=== PATIENT | female | born 1990 | race Two or more races ===

== ENCOUNTER 2018-08-25 04:51 | Observation (INO) | payer SELFPAY ==
[~2018-08-25] VITALS: Ht 165.1 cm; Wt 94.8 kg
[2018-08-25] MEDS ORDERED: ACETAMINOPHEN 325 MG TABLET. PO PRN (05:00)
[2018-08-25] MEDS ORDERED: MAG HYDROX/ALUMINUM HYD/SIMETH 30 ML ORAL.SUSP PO PRN (05:00)
[2018-08-25 05:10] VITALS: BP 97/52
[2018-08-25 05:23] LABS: BILIRUBIN,URINE NEGATIVE (NEG); CLARITY,URINE CLEAR; COLOR,URINE YELLOW; NITRITE,URINE POSITIVE (NEG); PH,URINE 6.5; PROTEIN,URINE NEGATIVE (NEG-TRACE)
[2018-08-25 05:30] LABS: BARBITURATES NEG (NEG); BENZODIAZEPINES NEG (NEG); CANNABINOIDS NEG (NEG); COCAINE NEG (NEG); METHADONE NEG (NEG); OPIATES NEG (NEG); PHENCYCLIDINE NEG (NEG)
[2018-08-25 05:31] LABS: RBC,URINE OCC /HPF (0-2)
[2018-08-25 05:32] LABS: BACTERIA,URINE MANY /HPF (0-FEW); SQUAMOUS EPITHELIAL CELL,UR MANY /LPF
[2018-08-25 05:37] LABS: AMPHETAMINE/METHAMPHETAMINE NEG (NEG)
[2018-08-25] MEDS: IV RINGERS,LACTATED 1000ML 1,000 ML IV PRN ×2 (06:38→07:50)
[2018-08-25 06:40] LABS: BASO % 0 % (0-3); EOS # 0.1 x10^3/uL (0.0-0.7); EOS % 1 % (0-3); HEMATOCRIT 37.3 % (36.0-47.0); HEMOGLOBIN 12.3 g/dL (12.0-15.5); LYMPH # 1.9 x10^3/uL (1.0-4.8); LYMPH % 16 % (24-48); MEAN CORPUSCULAR HEMOGLOBIN 30 pg (25-35); MEAN CORPUSCULAR HGB CONC 33 g/dL (31-37); MEAN CORPUSCULAR VOLUME 91 fL (79-100); MONO # 0.6 x10^3/uL (0.0-1.1); MONO % 5 % (0-9); NEUT # 9.1 x10^3uL (1.8-7.7); NEUT % 78 % (31-73); PLATELET COUNT 231 x10^3/uL (140-400); RED CELL DISTRIBUTION WIDTH 12.3 % (11.5-14.5); WHITE BLOOD COUNT 11.7 x10^3/uL (4.0-11.0)
--- NOTE | 2018-08-25 06:46 | RAD ---
Clinical History: Right upper quadrant pain and Technique: Sonographic examination of the right upper quadrant of the abdomen was performed and multiple static images were obtained. Comparison: none Findings: The majority of the liver is visualized and appears homogeneous. The liver measures 19 cm in length. The common bile duct appears normal and measures 3 mm in diameter. The gallbladder is mildly distended and has mild tenderness and small stones. There is no wall thickening or surrounding fluid. The pancreas is not well visualized due to overlying bowel gas. The right kidney appears normal and measures 12 cm in length. Impression: 1. Cholelithiasis and distention of the gallbladder. Mild tenderness over the gallbladder but no wall thickening or surrounding fluid to suggest acute gallstones. Clinical correlation is suggested. 2. Mild hepatomegaly. Electronically signed by: Joshua Peacock III, MD (08/25/2018 6:43 AM) [facility]
--- NOTE | 2018-08-25 06:50 | RAD ---
OB ultrasound greater than 14 weeks HISTORY: Right upper quadrant pain and Sonographic examination appearance was performed and multiple static images were obtained. There is a single live intrauterine the heartbeat is confirmed at 123 beats for minute. Visualization of structures is limited at this advanced gestational age. There is a 4.8 cm fibroid seen in the uterus. The LMP of 03/23/2018 corresponds with a 22 week 1 day gestational age and estimated date confinement of December 28, 2018. This may size by ultrasound is 22 weeks 2 days Estimated weight is 1 lb. 2 oz. Estimated weight percentile is 43 percent. Measurements are as follows: BPD 5.3 cm 22 weeks 0 days Head circumference 20 cm 22 weeks 2 days Abdominal circumference 17 cm 22 weeks 2 days Femur length 3.9 cm 20 weeks 5 days Amniotic fluid index is 7.5 cm. There is a breech position. There is an anterior wall placenta. IMPRESSION: 1. Single live intrauterine at 22 weeks 1 day gestational age by LMP has appropriate size by ultrasound. 2. Uterine fibroid likely incidental. 3. No abnormality identified. A short-term follow-up ultrasound could be performed if clinically indicated. Electronically signed by: Joshua Peacock III, MD (08/25/2018 6:47 AM) [facility]
[2018-08-25 07:07] LABS: CREATININE 0.5 mg/dL (0.6-1.0); GFR 145.9; POTASSIUM 3.4 mmol/L (3.5-5.1)
[2018-08-25 07:12] LABS: ALBUMIN 2.6 g/dL (3.4-5.0); ALBUMIN/GLOBULIN RATIO 0.6 (1.0-1.7); TOTAL BILIRUBIN 0.4 mg/dL (0.2-1.0); TOTAL PROTEIN 6.9 g/dL (6.4-8.2)
[2018-08-25] MEDS ORDERED: cefTRIAXone IV Push 1 GM VIAL. IVP ONE (08:45)
--- NOTE | 2018-08-25 10:20 | PDOC2 ---
CONSULT Date of Consult Date of Consult DATE: 08/25/18 TIME: 10:16 Reason for Consult Reason for Consult: cholelithiasis Referring Physician Referring Physician: Dr Peterson Identification/Chief Complaint Chief Complaint abdominal pain Source Source: Chart review, Patient History of Present Illness Reason for Visit: 22 weeks , developed acute epigastric pain with associated nausea last night. She had pizza and hot wings for supper. Currently no further pain Past Medical History Cardiovascular: HTN Past Surgical History Past Surgical History: No pertinent history Family History Family History: Other (noncontributory to current illness ) Social History No ALCOHOL: none Current Medications Current Medications Current Medications Ringer's Solution 1,000 ml @ 125 mls/hr Q8H PRN IV hydration Last administered on 08/25/18at 07:50; Start 08/25/18 at 05:00 Acetaminophen (Tylenol) 650 mg PRN Q6HRS PRN PO mild PAIN, TEMP > 100.5'F; Start 08/25/18 at 05:00 Al Hydroxide/Mg Hydroxide (Mylanta Plus Xs) 15 ml PRN Q4HRS PRN PO HEARTBURN / GAS; Start 08/25/18 at 05:00 Ceftriaxone Sodium (Rocephin) 1 gm 1X ONCE IVP Last administered on 08/25/18at 09:19; Start 08/25/18 at 08:45; Stop 08/25/18 at 08:56; Status DC Allergies Allergies: Coded Allergies: No Known Drug Allergies (Unverified , 08/25/18) ROS General: No: Chills, Other (fevers) PSYCHOLOGICAL ROS: No: Anxiety, Depression Eyes: No Blurry vision, No Double vision HEENT: No: Heacaches, Sore Throat Hematological and Lymphatic: No: Bleeding Problems, Blood Clots Respiratory: No: Cough, Shortness of breath Gastrointestinal: Yes Other (see hpi) Genitourinary: No Dysuria, No Hematuria Musculoskeletal: No Joint Pain, No Muscle Pain Neurological: No Confusion, No Numbness/Tingling Skin: No Pruritus, No Rash Physical Exam General: Alert, Oriented X3, Cooperative, No acute distress HEENT: PERRLA, Mucous membr. moist/pink Lungs: Clear to auscultation, Normal air movement Heart: Regular rate, Normal S1, Normal S2, No murmurs Abdomen: Soft, Other (NTTP, abdomen ) Extremities: No clubbing, No cyanosis Skin: No rashes, No breakdown Neuro: Normal gait, Normal speech Psych/Mental Status: Mental status NL, Mood NL MUSCULOSKELETAL: No deformity, No swelling Vitals VITALS Vital Signs Date Time Temp Pulse Resp B/P (MAP) Pulse Ox O2 Delivery O2 Flow Rate FiO2 08/25/18 05:10 97.2 49 16 97/52 (67) 97.2 Labs Labs Laboratory Tests Test 08/25/18 05:15 08/25/18 06:25 Urine Collection Type Unknown Urine Color Yellow Urine Clarity Clear Urine pH 6.5 Urine Specific [place] 1.025 Urine Protein Negative mg/dL (NEG-TRACE) Urine Glucose (UA) Negative mg/dL (NEG) Urine Ketones (Stick) Negative mg/dL (NEG) Urine Blood Negative (NEG) Urine Nitrite Positive (NEG) Urine Bilirubin Negative (NEG) Urine Urobilinogen Dipstick 1.0 mg/dL (0.2 mg/dL) Urine Leukocyte Esterase Moderate (NEG) Urine RBC Occ /HPF (0-2) Urine WBC 11-20 /HPF (0-4) Urine Squamous Epithelial Cells Many /LPF Urine Bacteria Many /HPF (0-FEW) Urine Mucus Mod /LPF Urine Opiates Screen Neg (NEG) Urine Methadone Screen Neg (NEG) Urine Barbiturates Neg (NEG) Urine Phencyclidine Screen Neg (NEG) Urine Amphetamine/Methamphetamine Neg (NEG) Urine Benzodiazepines Screen Neg (NEG) Urine Cocaine Screen Neg (NEG) Urine Cannabinoids Screen Neg (NEG) Urine Ethyl Alcohol Neg (NEG) White Blood Count 11.7 x10^3/uL (4.0-11.0) Red Blood Count 4.10 x10^6/uL (3.50-5.40) Hemoglobin 12.3 g/dL (12.0-15.5) Hematocrit 37.3 % (36.0-47.0) Mean Corpuscular Volume 91 fL (79-100) Mean Corpuscular Hemoglobin 30 pg (25-35) Mean Corpuscular Hemoglobin Concent 33 g/dL (31-37) Red Cell Distribution Width 12.3 % (11.5-14.5) Platelet Count 231 x10^3/uL (140-400) Neutrophils (%) (Auto) 78 % (31-73) Lymphocytes (%) (Auto) 16 % (24-48) Monocytes (%) (Auto) 5 % (0-9) Eosinophils (%) (Auto) 1 % (0-3) Basophils (%) (Auto) 0 % (0-3) Neutrophils # (Auto) 9.1 x10^3uL (1.8-7.7) Lymphocytes # (Auto) 1.9 x10^3/uL (1.0-4.8) Monocytes # (Auto) 0.6 x10^3/uL (0.0-1.1) Eosinophils # (Auto) 0.1 x10^3/uL (0.0-0.7) Basophils # (Auto) 0.0 x10^3/uL (0.0-0.2) Sodium Level 136 mmol/L (136-145) Potassium Level 3.4 mmol/L (3.5-5.1) Chloride Level 103 mmol/L (98-107) Carbon Dioxide Level 25 mmol/L (21-32) Anion Gap 8 (6-14) Blood Urea Nitrogen 7 mg/dL (7-20) Creatinine 0.5 mg/dL (0.6-1.0) Estimated GFR (Cockcroft-Gault) 145.9 BUN/Creatinine Ratio 14 (6-20) Glucose Level 124 mg/dL (70-99) Calcium Level 9.0 mg/dL (8.5-10.1) Total Bilirubin 0.4 mg/dL (0.2-1.0) Aspartate Amino Transf (AST/SGOT) 18 U/L (15-37) Alanine Aminotransferase (ALT/SGPT) 14 U/L (14-59) Alkaline Phosphatase 63 U/L (46-116) Total Protein 6.9 g/dL (6.4-8.2) Albumin 2.6 g/dL (3.4-5.0) Albumin/Globulin Ratio 0.6 (1.0-1.7) Amylase Level 68 U/L (25-115) Lipase 129 U/L (73-393) Laboratory Tests Test 08/25/18 05:15 08/25/18 06:25 Urine Collection Type Unknown Urine Color Yellow Urine Clarity Clear Urine pH 6.5 Urine Specific [place] 1.025 Urine Protein Negative mg/dL (NEG-TRACE) Urine Glucose (UA) Negative mg/dL (NEG) Urine Ketones (Stick) Negative mg/dL (NEG) Urine Blood Negative (NEG) Urine Nitrite Positive (NEG) Urine Bilirubin Negative (NEG) Urine Urobilinogen Dipstick 1.0 mg/dL (0.2 mg/dL) Urine Leukocyte Esterase Moderate (NEG) Urine RBC Occ /HPF (0-2) Urine WBC 11-20 /HPF (0-4) Urine Squamous Epithelial Cells Many /LPF Urine Bacteria Many /HPF (0-FEW) Urine Mucus Mod /LPF Urine Opiates Screen Neg (NEG) Urine Methadone Screen Neg (NEG) Urine Barbiturates Neg (NEG) Urine Phencyclidine Screen Neg (NEG) Urine Amphetamine/Methamphetamine Neg (NEG) Urine Benzodiazepines Screen Neg (NEG) Urine Cocaine Screen Neg (NEG) Urine Cannabinoids Screen Neg (NEG) Urine Ethyl Alcohol Neg (NEG) White Blood Count 11.7 x10^3/uL (4.0-11.0) Red Blood Count 4.10 x10^6/uL (3.50-5.40) Hemoglobin 12.3 g/dL (12.0-15.5) Hematocrit 37.3 % (36.0-47.0) Mean Corpuscular Volume 91 fL (79-100) Mean Corpuscular Hemoglobin 30 pg (25-35) Mean Corpuscular Hemoglobin Concent 33 g/dL (31-37) Red Cell Distribution Width 12.3 % (11.5-14.5) Platelet Count 231 x10^3/uL (140-400) Neutrophils (%) (Auto) 78 % (31-73) Lymphocytes (%) (Auto) 16 % (24-48) Monocytes (%) (Auto) 5 % (0-9) Eosinophils (%) (Auto) 1 % (0-3) Basophils (%) (Auto) 0 % (0-3) Neutrophils # (Auto) 9.1 x10^3uL (1.8-7.7) Lymphocytes # (Auto) 1.9 x10^3/uL (1.0-4.8) Monocytes # (Auto) 0.6 x10^3/uL (0.0-1.1) Eosinophils # (Auto) 0.1 x10^3/uL (0.0-0.7) Basophils # (Auto) 0.0 x10^3/uL (0.0-0.2) Sodium Level 136 mmol/L (136-145) Potassium Level 3.4 mmol/L (3.5-5.1) Chloride Level 103 mmol/L (98-107) Carbon Dioxide Level 25 mmol/L (21-32) Anion Gap 8 (6-14) Blood Urea Nitrogen 7 mg/dL (7-20) Creatinine 0.5 mg/dL (0.6-1.0) Estimated GFR (Cockcroft-Gault) 145.9 BUN/Creatinine Ratio 14 (6-20) Glucose Level 124 mg/dL (70-99) Calcium Level 9.0 mg/dL (8.5-10.1) Total Bilirubin 0.4 mg/dL (0.2-1.0) Aspartate Amino Transf (AST/SGOT) 18 U/L (15-37) Alanine Aminotransferase (ALT/SGPT) 14 U/L (14-59) Alkaline Phosphatase 63 U/L (46-116) Total Protein 6.9 g/dL (6.4-8.2) Albumin 2.6 g/dL (3.4-5.0) Albumin/Globulin Ratio 0.6 (1.0-1.7) Amylase Level 68 U/L (25-115) Lipase 129 U/L (73-393) Assessment/Plan Assessment/Plan symptomatic cholelithiasis, no cholecystitis no pain now would rec low fat heart healthy diet attempt to avoid cholecystectomy until after DEYA CAMPO APRN Aug 25, 2018 10:19
== END 2018-08-25 11:25 | disposition home or self-care (01) ==
LOC: 3 SO LND 04:51
PROVIDERS: ADMIT Specialist; ATTEND Specialist
DX: O99.612 Diseases of the digestive system complicating pregnancy, second trimester (principal); K80.20 Calculus of gallbladder without cholecystitis without obstruction; O26.892 Other specified pregnancy related conditions, second trimester; R10.13 Epigastric pain; R11.0 Nausea; Z3A.22 22 weeks gestation of pregnancy
CPT/HCPCS: 36415; 76705; 76815; 80053; 80307; 81001; 82150; 83690; 85025; 87086; 87186; 96374; G0378; G0379; J0696; J7120

== ENCOUNTER 2018-10-15 23:25 | Observation (INO) | payer MEDICAID, SELFPAY ==
[2018-10-15] MEDS ORDERED: IV RINGERS,LACTATED 1000ML 1,000 ML IV SCH (23:45)
[2018-10-15 23:51] LABS: BILIRUBIN,URINE NEGATIVE (NEG); CLARITY,URINE CLOUDY; COLOR,URINE YELLOW; NITRITE,URINE NEGATIVE (NEG); PROTEIN,URINE NEGATIVE (NEG-TRACE); UROBILINOGEN,URINE 0.2 mg/dL (0.2 mg/dL)
[2018-10-15 23:59] LABS: BARBITURATES NEG (NEG); BENZODIAZEPINES NEG (NEG); CANNABINOIDS NEG (NEG); COCAINE NEG (NEG); METHADONE NEG (NEG); OPIATES NEG (NEG); PHENCYCLIDINE NEG (NEG)
[2018-10-16 00:02] LABS: AMPHETAMINE/METHAMPHETAMINE NEG (NEG)
[2018-10-16 00:17] LABS: SQUAMOUS EPITHELIAL CELL,UR MOD /LPF
[2018-10-16 00:18] LABS: BACTERIA,URINE 0 /HPF (0-FEW); RBC,URINE 0 /HPF (0-2); SPERM,URINE PRESENT /HPF
== END 2018-10-16 00:50 | disposition home or self-care (01) ==
LOC: 3 SO LND 23:25
PROVIDERS: ADMIT Obstetrics & Gynecology; ATTEND Obstetrics & Gynecology
DX: O62.9 Abnormality of forces of labor, unspecified (principal); O36.8130 Decreased fetal movements, third trimester, not applicable or unspecified; Z3A.29 29 weeks gestation of pregnancy; O99.89 Other specified diseases and conditions complicating pregnancy, childbirth and the puerperium; R00.1 Bradycardia, unspecified
CPT/HCPCS: 80307; 81001; 87086; G0379